=== PATIENT | female | born 1995 | race Hispanic/Latino ===

== ENCOUNTER 2018-12-03 03:18 | Emergency (ER) | payer OTHER ==
[2018-12-03 03:29] VITALS: TEMP 98.5
--- NOTE | 2018-12-03 04:19 | ED PDOC ---
HPI: Chest Pain Time Seen by Provider: 12/03/18 03:31 Chief Complaint (Nursing): Chest Pain Chief Complaint (Provider): Chest Pain History Per: Patient History/Exam Limitations: no limitations Additional Complaint(s): 23 y/o female with history of anxiety and depression presents to the ED complaining of chest pain and nausea. Patient reports she was awoken by back pain and chest discomfort associated with nausea and vomiting. Patient has been having similar issues since May and has gotten multiple workups including upper endoscopy, GI consultation, and lab workups which has not revealed anything significant. Past Medical History Reviewed: Historical Data, Nursing Documentation, Vital Signs Vital Signs: Last Vital Signs Temp 98.5 F 12/03/18 03:26 Pulse 108 H 12/03/18 03:26 Resp 16 12/03/18 03:26 BP 125/82 12/03/18 03:26 Pulse Ox 98 12/03/18 03:26 - Medical History PMH: No Chronic Diseases - Surgical History Other surgeries: 1 termination - Family History Family History: States: Unknown Family Hx - Social History Current smoker - smoking cessation education provided: No Alcohol: None Drugs: Denies - Home Medications Home Medications: Ambulatory Orders Medication Instructions Recorded Ondansetron ODT [Zofran ODT] 4 mg PO Q6 PRN #8 odt 12/03/18 Sucralfate [Carafate Oral Susp] 1 gm PO QID #28 g 12/03/18 - Allergies Allergies/Adverse Reactions: Allergies Allergy/AdvReac Type Severity Reaction Status Date / Time No Known Allergies Allergy Verified 12/03/18 03:28 Review of Systems ROS Statement: Except As Marked, All Systems Reviewed And Found Negative Cardiovascular: Positive for: Chest Pain Gastrointestinal: Positive for: Nausea, Vomiting Musculoskeletal: Positive for: Back Pain Physical Exam - Reviewed Nursing Documentation Reviewed: Yes Vital Signs Reviewed: Yes - Physical Exam Appears: Positive for: Uncomfortable Head Exam: Positive for: ATRAUMATIC, NORMAL INSPECTION, NORMOCEPHALIC Skin: Positive for: Normal Color, Warm, DRY Eye Exam: Positive for: EOMI, Normal appearance, PERRL ENT: Positive for: Normal ENT Inspection Neck: Positive for: Normal, Painless ROM Cardiovascular/Chest: Positive for: Regular Rate, Rhythm. Negative for: Murmur Respiratory: Positive for: Normal Breath Sounds. Negative for: Respiratory Distress Gastrointestinal/Abdominal: Positive for: Tenderness (mild epigastric) Back: Positive for: Normal Inspection Extremity: Positive for: Normal ROM. Negative for: Pedal Edema, Deformity Neurological/Psych: Positive for: Awake, Alert, Normal Tone. Negative for: Motor/Sensory Deficits - Laboratory Results Result Diagrams: 12/03/18 03:50 12/03/18 03:50 - ECG O2 Sat by Pulse Oximetry: 98 (RA) Pulse Ox Interpretation: Normal Medical Decision Making Medical Decision Making: Time: 03:49 Impression: 23 y/o with epigastric tenderness, chest pain, and nausea Initial Plan: * Labs * IV fluids * Protonix * Zofran 06:38 Labs reviewed no clinically significant abnormalities. At this time patient is complaining of persistent pain and is requesting CT imaging. CT ordered. 07:00 Patient care endorsed to Dr. Van pending CT and reevaluation. Scribe Attestation: Documented by Lv Baker, acting as a scribe Lary Masters MD. Provider Scribe Attestation: All medical record entries made by the Scribe were at my direction and p ersonally dictated by me. I have reviewed the chart and agree that the record accurately reflects my personal performance of the history, physical exam, medical decision making, and the department course for this patient. I have also personally directed, reviewed, and agree with the discharge instructions and disposition. Disposition - Clinical Impression Clinical Impression: Atypical chest pain, Gastritis, GERD (gastroesophageal reflux disease) - Disposition Disposition: Routine/Home Disposition Time: 06:25 Condition: STABLE Additional Instructions: GINA ADAMS, thank you for letting us take care of you today. Your provider was Lino Masters MD and you were treated for CHEST/BACK PAIN. The emerg ency medical care you received today was directed at your acute symptoms. If you were prescribed any medication, please fill it and take as directed. It may take several days for your symptoms to resolve. Return to the Emergency Department if your symptoms worsen, do not improve, or if you have any other problems. Please contact your doctor or call one of the physicians/clinics you have been referred to that are listed on the Patient Visit Information form that is included in your discharge packet. Bring any paperwork you were given at discharge with you along with any medications you are taking to your follow up visit. Our treatment cannot replace ongoing medical care by a primary care pro vider outside of the emergency department. Thank you for allowing the [facility] team to be part of your care today. If you had an X-Ray or CT scan: A Radiologist will review the ED reading if any change in treatment is needed we will contact you. If you had a blood, urine, or wound culture: It will take several days for the results, if any change in treatment is needed we will contact you. If you had an STI test: It will take 48 hours for the results. Please call after 1 week if you have not heard back. Prescriptions: Ondansetron ODT [Zofran ODT] 4 mg PO Q6 PRN #8 odt PRN Reason: Nausea/Vomiting Sucralfate [Carafate Oral Susp] 1 gm PO QID #28 g Instructions: Gastritis, Chest Pain That Is Not Caused by the Heart (DC), Acid Reflux (Gastroesophageal Reflux Disease), Adult (DC) Forms: [employer] (Urdu)
[2018-12-03] MEDS: Sodium Chloride 0.9% 1,000 ML IV STA ×2 (04:26→06:57)
[2018-12-03 04:33] LABS: ALB/GLOB RATIO 1.1 (1.0-2.1); ALBUMIN 4.1 g/dL (3.5-5.0); ALT/SGPT 21 U/L (9-52); AST/SGOT 25 U/L (14-36); BASO # 0.1 K/uL (0.0-0.2); BASO % 0.8 % (0.0-2.0); BLOOD UREA NITROGEN 15 mg/dl (7-17); CALCIUM 9.8 mg/dL (8.4-10.2); EOS # 0.2 K/uL (0.0-0.7); EOS % 2.9 % (0.0-4.0); GFR NON-AFRICAN AMERICAN > 60; LYMPH # 2.4 K/uL (1.0-4.3); MEAN CELL VOLUME 87.9 fl (81.0-99.0); MEAN CORPUSCULAR HEMOGLOBIN 29.4 pg (27.0-31.0); MEAN CORPUSCULAR HGB CONC 33.5 g/dL (33.0-37.0); MEAN PLATELET VOLUME 7.8 fl (7.2-11.7); MONO # 0.6 K/uL (0.0-0.8); MONO % 8.5 % (0.0-10.0); NEUT # 3.5 K/uL (1.8-7.0); NEUT % 51.8 % (50.0-75.0); NRBC % 0.1 % (0.0-0.0); RBC 4.75 Mil/uL (3.80-5.20); RED CELL DISTRIBUTION WIDTH 12.9 % (11.5-14.5); WHITE BLOOD COUNT 6.8 K/uL (4.8-10.8)
[2018-12-03 04:44] LABS: LIPASE 77 U/L (23-300)
[2018-12-03] MEDS ORDERED: Alum-Mag Hydrox-Simethicone Susp (30 mL) PO ONE (06:01)
--- NOTE | 2018-12-03 07:18 | ED PDOC ---
- Laboratory Results Result Diagrams: 12/03/18 03:50 12/03/18 03:50 Lab Results: D-Dimer, Quantitative < 200 ng/mlDDU (0-230) 12/03/18 03:50 Troponin I < 0.0120 ng/mL (0.00-0.120) 12/03/18 03:50 Total Bilirubin 0.2 mg/dl (0.2-1.3) 12/03/18 03:50 AST 25 U/L (14-36) 12/03/18 03:50 ALT 21 U/L (9-52) 12/03/18 03:50 Alkaline Phosphatase 73 U/L (38-126) 12/03/18 03:50 Total Protein 8.0 G/DL (6.3-8.2) 12/03/18 03:50 Albumin 4.1 g/dL (3.5-5.0) 12/03/18 03:50 Globulin 3.9 gm/dL (2.2-3.9) 12/03/18 03:50 Albumin/Globulin Ratio 1.1 (1.0-2.1) 12/03/18 03:50 Lipase 77 U/L (23-300) 12/03/18 03:50 - ECG O2 Sat by Pulse Oximetry: 98 (RA) Pulse Ox Interpretation: Normal Medical Decision Making Medical Decision Making: Time: 0700 Patient being endorsed to provider from Lino Masters MD. Patient pending CT, reevaluation, and final disposition. Time: 0900 FINDINGS: LOWER THORAX: The visualized lungs are clear. LIVER: Normal in size with homogeneous enhancement. No gross lesion or ductal dilatation. GALLBLADDER AND BILE DUCTS: Well distended. No calcified gallstones, wall thickening or pericholecystic fluid. PANCREAS: Normal in size with homogeneous enhancement. No gross lesion or ductal dilatation. SPLEEN: Normal in size and appearance. ADRENALS: No discrete nodule. KIDNEYS AND URETERS: Normal in size with homogeneous enhancement. No hydronephrosis. No solid mass. VASCULATURE: No aortic aneurysm. There are no aortic atherosclerotic calcifications or mural plaque present. BOWEL: Evaluation of the bowel is limited in the absence of oral contrast. The small bowel loops are normal in caliber. There is mild gaseous distension of the pr oximal sigmoid colon and large amount of stool in the distal sigmoid colon and rectum. The sigmoid colon is redundant.. No bowel wall thickening or obstruction. APPENDIX: Normal appendix. PERITONEUM: No free fluid. No free air. LYMPH NODES: No enlarged lymph nodes. BLADDER: Well distended and normal in appearance. REPRODUCTIVE: The uterus is normal in size. BONES: No acute fracture. Within normal limits for the patient's age. OTHER FINDINGS: None. IMPRESSION: No acute abdominal or pelvic abnormality. Mild gaseous distension of the proximal sigmoid colon, large amount of stool in the distal sigmoid colon and rectum in a redundant sigmoid colon. No evidence for bowel obstruction. Pt aware of results stable for dc and outpt follow up Scribe Attestation: Documented by Layton Galeana, acting as a scribe for Tomer Van MD Provider Scribe Attestation: All medical record entries made by the Scribe were at my direction and personally dictated by me. I have reviewed the chart and agree that the record accurately reflects my personal performance of the history, physical exam, medical decision making, and the department course for this patient. I have also personally directed, reviewed, and agree with the discharge instructions and disposition. Disposition Counseled Patient/Family Regarding: Studies Performed, Diagnosis, Need For Followup - Clinical Impression Clinical Impression: Atypical chest pain, Gastritis, GERD (gastroesophageal reflux disease), Constipation - POA Present On Arrival: None - Disposition Disposition: Routine/Home Disposition Time: 09:25 Condition: IMPROVED Additional Instructions: GINA ADAMS, thank you for letting us take care of you today. Your provider was Lino Masters MD and you were treated for CHEST/BACK PAIN. The emergency medical care you received today was directed at your acute symptoms. If you were prescribed any medication, please fill it and take as directed. It may take several days for your symptoms to resolve. Return to the Emergency Department if your symptoms worsen, do not improve, or if you have any other problems. Please contact your doctor or call one of the physicians/clinics you have been referred to that are listed on the Patient Visit Information form that is included in your discharge packet. Bring any paperwork you were given at discharge with you along with any medications you are taking to your follow up visit. Our treatment cannot replace ongoing medical care by a primary care provider outside of the emergency department. Thank you for allowing the [facility] team to be part of your care today. If you had an X-Ray or CT scan: A Radiologist will review the ED reading if any change in treatment is needed we will contact you. If you had a blood, urine, or wound culture: It will take several days for the results, if any change in treatment is needed we will contact you. If you had an STI test: It will take 48 hours for the results. Please call after 1 week if you have not heard back. Prescriptions: Ondansetron ODT [Zofran ODT] 4 mg PO Q6 PRN #8 odt PRN Reason: Nausea/Vomiting Sucralfate [Carafate Oral Susp] 1 gm PO QID #28 g Instructions: Gastritis, High Fiber Diet, Chest Pain That Is Not Caused by the Heart (DC), Constipation, Adult (DC), Acid Reflux (Gastroesophageal Reflux Disease), Adult (DC) Forms: [employer] (New Zealander)
--- NOTE | 2018-12-03 07:52 | CARD ---
APPROVED REPORT Date of service: 12/03/2018 EKG Measurement Heart [id number] <Conclusion> Sinus tachycardia Otherwise normal ECG
[2018-12-03] MEDS ORDERED: Iohexol 300 100 ML IJ ONE (08:27)
[2018-12-03] MEDS ORDERED: Sodium Chloride 0.9% 100 ML ONE (08:28)
--- NOTE | 2018-12-03 09:04 | CT ---
Date of service: 12/03/2018 PROCEDURE: CT Abdomen and Pelvis with contrast HISTORY: Abdominal pain COMPARISON: None available. TECHNIQUE: CT scan of the abdomen and pelvis was performed after administration of intravenous contrast. Oral contrast was not administered. Coronal and sagittal reformatted images were obtained. Contrast dose: 95 cc Omnipaque 300 Radiation dose: Total exam DLP = 228.69 mGy-cm. This CT exam was performed using one or more of the following dose reduction techniques: Automated exposure control, adjustment of the mA and/or kV according to patient size, and/or use of iterative reconstruction technique. FINDINGS: LOWER THORAX: The visualized lungs are clear. LIVER: Normal in size with homogeneous enhancement. No gross lesion or ductal dilatation. GALLBLADDER AND BILE DUCTS: Well distended. No calcified gallstones, wall thickening or pericholecystic fluid. PANCREAS: Normal in size with homogeneous enhancement. No gross lesion or ductal dilatation. SPLEEN: Normal in size and appearance. ADRENALS: No discrete nodule. KIDNEYS AND URETERS: Normal in size with homogeneous enhancement. No hydronephrosis. No solid mass. VASCULATURE: No aortic aneurysm. There are no aortic atherosclerotic calcifications or mural plaque present. BOWEL: Evaluation of the bowel is limited in the absence of oral contrast. The small bowel loops are normal in caliber. There is mild gaseous distension of the proximal sigmoid colon and large amount of stool in the distal sigmoid colon and rectum. The sigmoid colon is redundant.. No bowel wall thickening or obstruction. APPENDIX: Normal appendix. PERITONEUM: No free fluid. No free air. LYMPH NODES: No enlarged lymph nodes. BLADDER: Well distended and normal in appearance. REPRODUCTIVE: The uterus is normal in size. BONES: No acute fracture. Within normal limits for the patient's age. OTHER FINDINGS: None. IMPRESSION: No acute abdominal or pelvic abnormality. Mild gaseous distension of the proximal sigmoid colon, large amount of stool in the distal sigmoid colon and rectum in a redundant sigmoid colon. No evidence for bowel obstruction.
[2018-12-03 09:46] VITALS: BP 110/80; PULSE 88; RESP 17
[2018-12-04 13:00] VITALS: O2SAT 98
== END 2018-12-03 09:45 | disposition home or self-care (01) ==
LOC: H.ER 03:18
DX: R07.89 Other chest pain (principal); K59.00 Constipation, unspecified; K21.9 Gastro-esophageal reflux disease without esophagitis; K29.70 Gastritis, unspecified, without bleeding
CPT/HCPCS: 74177; 80053; 81025; 83690; 84484; 85025; 85378; 93005; 99284; J7030; Q9967